=== PATIENT | female | born 1985 | race Caucasian/White ===

== ENCOUNTER 2023-11-09 13:29 | Observation (INO) ==
[2023-11-09] MEDS ORDERED: IOPAMIDOL 100 ML BOTTLE IV ONE (13:30)
[2023-11-09] MEDS: ONDANSETRON 4 MG/2 ML VIAL IV ONE (14:20)
[2023-11-09] MEDS: 0.9 % SODIUM CHLORIDE 1,000 ML IV ONE (14:20)
[2023-11-09] MEDS: HYDROmorphone 1 MG/ML SYRINGE IV ONE ×2 (14:22→15:27)
[2023-11-09] MEDS: ONDANSETRON 4 MG/2 ML VIAL IV PRN (18:38)
[2023-11-09] MEDS: HYDROmorphone 0.5 MG/0.5 ML SYRINGE IV PRN (18:38)
[2023-11-09] MEDS: 0.9 % SODIUM CHLORIDE 1,000 ML IV SCH (18:38)
[2023-11-09] MEDS: PIPERACILLIN SODIUM/TAZOBACTAM 3.375 GM in DEXTROSE 5% IN WATER 100 ML IV SCH (18:45)
[2023-11-09 20:44] LABS: ALT/SGPT 8 U/L (<40); AST/SGOT 19 U/L (<32); Albumin 4.4 gm/dL (3.2-5.2); Albumin/Globulin Ratio 1.7 (1.0-2.3); Alkaline Phosphatase 71 U/L (39-117); Bilirubin,Total 0.8 mg/dL (0.1-1.0); Blood Urea Nitrogen 13 mg/dL (6-20); Calcium 9.5 mg/dL (8.6-10.4); Carbon Dioxide 21 mmol/L (22-30); Chloride 101 mmol/L (96-108); Globulin 2.6 gm/dL (2.2-3.7); Glomerular Filtration Rate 124; Glucose 127 mg/dL (70-105); Potassium 3.8 mmol/L (3.3-5.1); Sodium 135 mmol/L (133-145)
[2023-11-09 21:12] LABS: Appearance,Urine Clear (Clear); Bilirubin,Urine Negative (Negative); Color,Urine Yellow; Culture Indicated,Urine No; Glucose,Urine (UA) Negative (Negative); Ketones,Urine >=160 mg/dL (Negative); Leukocyte Esterase,Urine Negative /uL (Negative); Nitrate,Urine Negative (Negative); Protein,Urine Negative (Negative); Specific Gravity,Urine >= 1.030 (1.000-1.035); Urine Blood Trace-lysed ery/mcL (Negative); Urine RBC 0 /hpf (0-3); Urine Squamous Epithelial Cell 2 /hpf (0-4); Urine WBC 0 /hpf (0-4); Urobilinogen,Urine Normal
[2023-11-09 21:52] LABS: Basophils # (Auto) 0.01 K/mcL (0.00-0.30); Basophils % (Auto) 0.1 % (0.0-2.0); Eosinophils # (Auto) 0.02 K/mcL (0.00-0.70); Eosinophils % (Auto) 0.1 % (0.0-7.0); Hemoglobin 11.9 g/dL (11.2-15.7); Lymphocytes # (Auto) 0.88 K/mcL (1.50-4.80); Lymphocytes % (Auto) 5.4 % (15.5-49.0); Mean Corpuscular HGB Conc 33.1 g/dL (31.0-36.0); Mean Platelet Volume 10.6 fL (8.8-12.5); Monocytes # (Auto) 0.82 K/mcL (0.10-0.90); Neutrophils % (Auto) 89.2 % (38.0-78.0); Platelet Count 247 K/mcL (140-440); RBC 3.87 M/mcL (3.59-5.38); Red Cell Distribution Width 12.4 % (11.5-14.5); WBC 16.3 K/mcL (4.5-11.0)
[2023-11-09] MEDS: ACETAMINOPHEN 1,000 MG/100 ML BAG IV PRN (22:46)
[2023-11-09] MEDS: ACETAMINOPHEN 1,000 MG/100 ML BAG IV ONE (22:51)
[2023-11-10] MEDS: ACETAMINOPHEN 1,000 MG/100 ML BAG IV ONE (05:58)
[2023-11-10 07:00] LABS: Basophils # (Auto) 0.01 K/mcL (0.00-0.30); Basophils % (Auto) 0.1 % (0.0-2.0); Eosinophils # (Auto) 0.04 K/mcL (0.00-0.70); Eosinophils % (Auto) 0.3 % (0.0-7.0); Hematocrit 32.3 % (34.1-44.9); Hemoglobin 10.6 g/dL (11.2-15.7); Lymphocytes # (Auto) 1.21 K/mcL (1.50-4.80); Lymphocytes % (Auto) 10.4 % (15.5-49.0); Mean Corpuscular HGB Conc 32.8 g/dL (31.0-36.0); Mean Platelet Volume 10.5 fL (8.8-12.5); Monocytes # (Auto) 0.92 K/mcL (0.10-0.90); Monocytes % (Auto) 7.9 % (1.0-12.0); Neutrophils % (Auto) 81.1 % (38.0-78.0); Platelet Count 207 K/mcL (140-440); Red Cell Distribution Width 12.5 % (11.5-14.5); WBC 11.7 K/mcL (4.5-11.0)
[2023-11-10 07:13] LABS: ALT/SGPT 7 U/L (<40); AST/SGOT 12 U/L (<32); Albumin 3.7 gm/dL (3.2-5.2); Albumin/Globulin Ratio 1.7 (1.0-2.3); Alkaline Phosphatase 58 U/L (39-117); Bilirubin,Direct 0.3 mg/dL (<0.3); Bilirubin,Total 0.9 mg/dL (0.1-1.0); Blood Urea Nitrogen 5 mg/dL (6-20); Calcium 8.3 mg/dL (8.6-10.4); Carbon Dioxide 23 mmol/L (22-30); Chloride 102 mmol/L (96-108); Globulin 2.2 gm/dL (2.2-3.7); Glomerular Filtration Rate 124; Glucose 116 mg/dL (70-105); Lactate Dehydrogenase 120 U/L (135-225); Phosphorous 2.4 mg/dL (2.5-4.5); Potassium 3.5 mmol/L (3.3-5.1); Sodium 134 mmol/L (133-145); Triglycerides 125 mg/dL (<150); Uric Acid 2.6 mg/dL (2.5-8.0)
[2023-11-10] MEDS ORDERED: PROPOFOL 200 MG/20 ML VIAL IV ONE (10:29)
[2023-11-10] MEDS ORDERED: DEXAMETHASONE 10 MG/ML VIAL ONE (10:29)
[2023-11-10] MEDS ORDERED: SUGAMMADEX SODIUM 200 MG/2 ML VIAL IV ONE (10:29)
[2023-11-10] MEDS ORDERED: GLYCOPYRROLATE 0.2 MG/ML VIAL IV ONE (10:29)
[2023-11-10] MEDS ORDERED: fentaNYL 100 MCG/2 ML VIAL ONE (10:29)
[2023-11-10] MEDS ORDERED: ONDANSETRON 4 MG/2 ML VIAL ONE (10:29)
[2023-11-10] MEDS ORDERED: LIDOCAINE 2% PF 5 ML VIAL ONE (10:29)
[2023-11-10] MEDS ORDERED: ROCURONIUM 10 MG/ML ML IV ONE (10:30)
[2023-11-10] MEDS ORDERED: MIDAZOLAM 2 MG/2 ML VIAL ONE (10:31)
[2023-11-10] MEDS ORDERED: KETAMINE 50 MG/ML Syringe IV ONE (10:32)
[2023-11-10] MEDS ORDERED: MAGNESIUM SULFATE 2 GM/50 ML BAG IV ONE (10:55)
[2023-11-10] MEDS ORDERED: IPRATROPIUM/ALBUTEROL 3 ML AMPUL.NEB NEB PRN (11:19)
[2023-11-10] MEDS ORDERED: ONDANSETRON 4 MG/2 ML VIAL IV PRN (11:19)
[2023-11-10] MEDS ORDERED: HYDROmorphone 1 MG/ML SYRINGE ONE (11:20)
[2023-11-10] MEDS: fentaNYL 100 MCG/2 ML VIAL IV PRN (12:00)
[2023-11-10] MEDS: LACTATED RINGERS 1,000 ML IV SCH (12:16)
[2023-11-10] MEDS: oxyCODONE IR 5 MG TABLET PO PRN (20:47)
== END 2023-11-11 17:45 | disposition home or self-care (01) ==
LOC: ED 13:29 → MEDSUR 13:29
PROVIDERS: ADMIT Family Medicine Adult Medicine; ATTEND Family Medicine Adult Medicine
PROC: LAPAPPY (ICD-10-PCS; 2023-11-10 10:42)